=== PATIENT | male | born 1960 | race Caucasian/White ===

== ENCOUNTER 2020-10-14 22:34 | Emergency (ER) | payer OTHER ==
[2020-10-15 01:45] LABS: HEMOGLOBIN 15.9 gm/dl (14.0-17.5); RED BLOOD COUNT 4.69 M/UL (4.20-5.50)
[2020-10-15 02:13] LABS: BUN/CREATININE RATIO 25 (0-10)
[2020-10-15] MEDS ORDERED: ASPIRIN CHEWABL81 MG PO (05:13)
== END 2020-10-15 05:30 | disposition home or self-care (01) ==
LOC: ER1 22:34
PROVIDERS: Emergency Medicine
DX: R07.9 Chest pain, unspecified (principal); F17.290 Nicotine dependence, other tobacco product, uncomplicated; Z88.6 Allergy status to analgesic agent; Z88.8 Allergy status to other drugs, medicaments and biological substances
CPT/HCPCS: 71046; 80053; 82550; 82553; 83874; 84484; 85025; 93005; 99285